=== PATIENT | female | born 1960 | race Hispanic/Latino ===

== ENCOUNTER 2018-11-06 19:52 | Inpatient (IN) | payer SELFPAY ==
[~2018-11-06] VITALS: Ht 157.5 cm; Wt 130.8 kg
[2018-11-06 20:13] LABS: BASOPHILS % (AUTO) 0.5 % (0.0-5.0); EOSINOPHILS % (AUTO) 0.4 % (0.0-8.0); HEMATOCRIT 42.7 % (36-48); LYMPHOCYTES % (AUTO) 17.8 % (21.0-51.0); MEAN CORPUSCULAR HEMOGLOBIN 31.1 pg (27.0-33.0); MEAN CORPUSCULAR HGB CONC 33.5 g/dL (32.0-36.0); MEAN CORPUSCULAR VOLUME 92.9 fL (79-99); MONOCYTES % (AUTO) 5.2 % (3.0-13.0); NEUTROPHILS % (AUTO) 76.1 % (40.0-77.0); PLATELET COUNT (AUTO) 226 K/uL (130-400); RED BLOOD CELL COUNT(AUTO) 4.59 MIL/uL (4.00-5.50); RED CELL DISTRIBUTION WIDTH 14.1 % (11.0-15.5); WHITE BLOOD COUNT (AUTO) 13.8 K/uL (4.8-10.8)
[2018-11-06] MEDS ORDERED: MORPHINE SULFATE 4 MG/1ML SYG ONE (20:30)
[2018-11-06 20:33] LABS: CREATININE 0.8 mg/dL (0.5-1.5); POTASSIUM 3.8 mmol/L (3.5-5.1)
[2018-11-06 20:39] LABS: CREATINE KINASE, TOTAL 150 U/L (21-232)
[2018-11-06 20:40] LABS: ALBUMIN 3.7 g/dL (3.5-5.0); BILIRUBIN,TOTAL 1.4 mg/dL (0.2-1.0); TOTAL PROTEIN, SERUM 7.9 g/dL (6.0-8.3)
[2018-11-06 21:45] LABS: LIPASE 31567 U/L (114-286)
[2018-11-06] MEDS ORDERED: ZOSYN 3.375GM+NS 50ML 50 ML IV ONE (22:54)
[2018-11-06 23:23] LABS: APPEARANCE,URINE Clear (CLEAR); BILIRUBIN,URINE Negative (NEGATIVE); COLOR,URINE Yellow (YELLOW); GLUCOSE, URINE (UA) Negative (NEGATIVE); KETONES,URINE 15 mg/dL (NEGATIVE); LEUKOCYTE ESTERASE ,URINE Large (NEGATIVE); NITRATE,URINE Negative (NEGATIVE); OCCULT BLOOD,URINE Small (NEGATIVE); PH,URINE 5.5 (5.0-8.0); PROTEIN,URINE Negative (NEGATIVE); UROBILINOGEN,URINE 0.2 mg/dL (0.2-1.0)
[2018-11-06 23:40] VITALS: BP 143/77
--- NOTE | 2018-11-06 23:50 | NUR ---
Admission Assessment Received pt from ED per wheelchair with no family around, routine admission assessment done, plan of care discuss, all laboratory & radiologic studies discuss with all concern questions addressed, NPO instructed, aware to start NS at 150cc/hr. Pt claimed abdominal pain started earlier today at 1500 & became severe reason of coming in to the hospital. Pt currently denies any discomfort stated was given some pain medication in ED.
[2018-11-06 23:53] LABS: BACTERIA,URINE Few /HPF (None Seen); MUCUS,URINE Moderate LPF (None Seen); SQUAMOUS EPITHELIAL CELL,UR Moderate /HPF (0-2)
[2018-11-06] MEDS ORDERED: SODIUM CHLORIDE 0.9% 1000ML 1,000 ML IV SCH (23:57)
[2018-11-07] MEDS ORDERED: ACETAMINOPHEN 325 MG TAB PO PRN
[2018-11-07] MEDS ORDERED: MORPHINE SULFATE 4 MG/1ML SYG IV PRN
[2018-11-07] MEDS ORDERED: ONDANSETRON HCL 4 MG/2 ML VIAL IV PRN
[2018-11-07] MEDS ORDERED: HYDRALAZINE HCL 20 MG/ML VIAL IV PRN
[2018-11-07] MEDS ORDERED: METRONIDAZOLE 500MG/100ML BAG 100 ML ONE (00:17)
[2018-11-07] MEDS ORDERED: SODIUM CHLORIDE 0.9% 1000ML 1,000 ML IV ONE (00:17)
[2018-11-07] MEDS ORDERED: LEVO50TA11 PO (00:29)
[2018-11-07] MEDS ORDERED: ENAL20TA PO (00:29)
[2018-11-07] MEDS ORDERED: FISH1CAP27 PO (00:29)
[2018-11-07] MEDS ORDERED: METF-444 PO (00:29)
[2018-11-07] MEDS ORDERED: MORPHINE SULFATE 4 MG/1ML SYG ONE (01:03)
[2018-11-07 03:59] VITALS: BP 125/75
[2018-11-07] MEDS: FAMOTIDINE/PF 20 MG/2 ML VIAL IV SCH ×2 (07:58→21:29)
[2018-11-07] MEDS: METRONIDAZOLE 500MG/100ML BAG 100 ML IV SCH ×3 (07:58→16:59)
[2018-11-07] MEDS: ENOXAPARIN SODIUM 30 MG/0.3 ML SQ SCH ×2 (07:59→21:29)
[2018-11-07] MEDS ORDERED: GLUCAGON 1MG KIT 1 MG ML IM PRN (08:00)
[2018-11-07] MEDS ORDERED: DEXTROSE 50%-WATER 50 ML DISP.SYRIN IV PRN (08:00)
[2018-11-07 08:17] LABS: BASOPHILS % (AUTO) 0.2 % (0.0-5.0); EOSINOPHILS % (AUTO) 0.4 % (0.0-8.0); HEMATOCRIT 38.4 % (36-48); LYMPHOCYTES % (AUTO) 18.1 % (21.0-51.0); MEAN CORPUSCULAR HEMOGLOBIN 32.2 pg (27.0-33.0); MEAN CORPUSCULAR HGB CONC 34.7 g/dL (32.0-36.0); MEAN CORPUSCULAR VOLUME 92.8 fL (79-99); MONOCYTES % (AUTO) 7.5 % (3.0-13.0); NEUTROPHILS % (AUTO) 73.8 % (40.0-77.0); PLATELET COUNT (AUTO) 187 K/uL (130-400); RED BLOOD CELL COUNT(AUTO) 4.14 MIL/uL (4.00-5.50); RED CELL DISTRIBUTION WIDTH 14.1 % (11.0-15.5); WHITE BLOOD COUNT (AUTO) 7.5 K/uL (4.8-10.8)
[2018-11-07 08:24] LABS: CREATININE 0.7 mg/dL (0.5-1.5); POTASSIUM 3.8 mmol/L (3.5-5.1)
[2018-11-07 08:39] VITALS: BP 123/74
[2018-11-07 11:56] VITALS: BP 142/81
[2018-11-07] MEDS: INSULIN HUMULIN R 100 UNIT/ML 3ML SQ SCH ×2 (12:00→18:00)
[2018-11-07] MEDS: FISH OIL 1000 MG/CAP PO SCH (12:01)
[2018-11-07] MEDS: ENALAPRIL MALEATE 10 MG TABLET PO SCH (12:01)
[2018-11-07] MEDS: LACTATED RINGERS 1000ML 1,000 ML IV SCH ×3 (12:02→21:29)
[2018-11-07] MEDS: ZOSYN 3.375GM+NS 50ML 50 ML IV SCH ×2 (12:02→16:59)
--- NOTE | 2018-11-07 14:20 | NUR ---
SURGICAL CONSULT VISITED WITH PATIENT. POC DISCUSSED. NEW ORDERS RECEIVED AND CARRIED OUT. PATIENT AWARE. NO QUESTIONS OR CONCERNS VOICED. NO COMPLAINTS OF PAIN VOICED AT THIS TIME. NPO. NO SIGNS OF DISTRESS NOTED. LR INFUSING AT 100ML/HR. NO NAUSEA OR VOMITING NOTED. UP AD ROSALIA. CALL LIGHT WITHIN REACH. WILL CONTINUE TO BE OBSERVED. Addendum: 11/07/18 at 3 by ELADIA LAM RN RN Amended: Links added.
[2018-11-07 16:43] VITALS: BP 166/76
--- NOTE | 2018-11-07 18:25 | NUR ---
D/C PLAN CM spoke to pt regarding d/c planning. Pt is ind. and lives alone. Pt f/u at [facility] for medical care. CM provided community resources packet. Plan to home. CM to f/u Addendum: 11/07/18 at 1827 by NEPTALI BANG CM Amended: Links added.
[2018-11-07 20:00] VITALS: BP 146/81
[2018-11-07 23:49] VITALS: BP 138/79
[2018-11-08] MEDS: METRONIDAZOLE 500MG/100ML BAG 100 ML IV SCH ×3 (00:23→16:15)
[2018-11-08] MEDS: ZOSYN 3.375GM+NS 50ML 50 ML IV SCH ×3 (01:37→17:38)
--- NOTE | 2018-11-08 02:59 | NUR ---
NPO Pt remains NPO,denies pain,no nausea or vomiting.
[2018-11-08 03:49] VITALS: BP 149/89
[2018-11-08 05:07] LABS: HEMATOCRIT 37.6 % (36-48); MEAN CORPUSCULAR HEMOGLOBIN 31.5 pg (27.0-33.0); MEAN CORPUSCULAR HGB CONC 33.6 g/dL (32.0-36.0); MEAN CORPUSCULAR VOLUME 93.7 fL (79-99); PLATELET COUNT (AUTO) 181 K/uL (130-400); RED BLOOD CELL COUNT(AUTO) 4.02 MIL/uL (4.00-5.50); RED CELL DISTRIBUTION WIDTH 14.3 % (11.0-15.5); WHITE BLOOD COUNT (AUTO) 5.8 K/uL (4.8-10.8)
[2018-11-08 05:22] LABS: CREATININE 0.7 mg/dL (0.5-1.5); POTASSIUM 3.3 mmol/L (3.5-5.1)
[2018-11-08] MEDS: INSULIN HUMULIN R 100 UNIT/ML 3ML SQ SCH ×5 (06:00→21:20)
[2018-11-08] MEDS: LEVOTHYROXINE 50 MCG TABLET PO SCH (06:37)
[2018-11-08 08:00] VITALS: BP 165/85
[2018-11-08] MEDS: ENALAPRIL MALEATE 10 MG TABLET PO SCH (09:23)
[2018-11-08] MEDS: FAMOTIDINE/PF 20 MG/2 ML VIAL IV SCH ×2 (09:23→21:13)
[2018-11-08] MEDS: ENOXAPARIN SODIUM 30 MG/0.3 ML SQ SCH ×2 (09:24→21:13)
[2018-11-08] MEDS: FISH OIL 1000 MG/CAP PO SCH (11:04)
[2018-11-08] MEDS: LACTATED RINGERS 1000ML 1,000 ML IV SCH ×2 (11:04→21:12)
[2018-11-08 12:00] VITALS: BP 143/74
[2018-11-08 16:00] VITALS: BP 145/71
[2018-11-08 20:00] VITALS: BP 162/86
[2018-11-09] VITALS: BP 162/75
[2018-11-09] MEDS: METRONIDAZOLE 500MG/100ML BAG 100 ML IV SCH ×3 (00:20→15:24)
[2018-11-09] MEDS: ZOSYN 3.375GM+NS 50ML 50 ML IV SCH ×3 (01:08→15:24)
[2018-11-09 04:00] VITALS: BP 125/78
[2018-11-09 05:11] LABS: HEMATOCRIT 37.9 % (36-48); MEAN CORPUSCULAR HEMOGLOBIN 32.3 pg (27.0-33.0); MEAN CORPUSCULAR HGB CONC 34.4 g/dL (32.0-36.0); NUCLEATED RED BLOOD CELLS 0.1 % (0.0-0.19); PLATELET COUNT (AUTO) 176 K/uL (130-400); RED BLOOD CELL COUNT(AUTO) 4.03 MIL/uL (4.00-5.50); RED CELL DISTRIBUTION WIDTH 14.2 % (11.0-15.5); WHITE BLOOD COUNT (AUTO) 5.7 K/uL (4.8-10.8)
[2018-11-09 05:25] LABS: CREATININE 0.8 mg/dL (0.5-1.5); POTASSIUM 3.7 mmol/L (3.5-5.1)
[2018-11-09] MEDS: INSULIN HUMULIN R 100 UNIT/ML 3ML SQ SCH ×3 (06:00→16:16)
[2018-11-09] MEDS: LEVOTHYROXINE 50 MCG TABLET PO SCH (06:23)
[2018-11-09] MEDS: LACTATED RINGERS 1000ML 1,000 ML IV SCH ×2 (06:25→15:25)
[2018-11-09 08:00] VITALS: BP 157/81
[2018-11-09] MEDS: FAMOTIDINE/PF 20 MG/2 ML VIAL IV SCH ×2 (09:12→21:17)
[2018-11-09] MEDS: ENALAPRIL MALEATE 10 MG TABLET PO SCH (09:12)
[2018-11-09] MEDS: ENOXAPARIN SODIUM 30 MG/0.3 ML SQ SCH ×2 (09:13→21:17)
[2018-11-09 12:00] VITALS: BP 140/83
[2018-11-09] MEDS: FISH OIL 1000 MG/CAP PO SCH (12:25)
[2018-11-09 16:00] VITALS: BP 150/67
[2018-11-09 20:00] VITALS: BP 156/84
[2018-11-10] VITALS (7 sets, daily range): BP systolic 133–162; BP diastolic 70–97
[2018-11-10] MEDS: METRONIDAZOLE 500MG/100ML BAG 100 ML IV SCH ×3 (00:21→15:22)
[2018-11-10] MEDS: ZOSYN 3.375GM+NS 50ML 50 ML IV SCH ×3 (00:21→18:13)
[2018-11-10] MEDS: LACTATED RINGERS 1000ML 1,000 ML IV SCH ×2 (04:19→15:22)
--- NOTE | 2018-11-10 04:46 | NUR ---
BP Pts bp 161/80.She states she does not want to take anything for her bp this time.Denies pain or discomfort.
[2018-11-10 05:42] LABS: HEMATOCRIT 37.6 % (36-48); MEAN CORPUSCULAR HEMOGLOBIN 31.6 pg (27.0-33.0); PLATELET COUNT (AUTO) 206 K/uL (130-400); RED BLOOD CELL COUNT(AUTO) 4.04 MIL/uL (4.00-5.50); RED CELL DISTRIBUTION WIDTH 14.1 % (11.0-15.5)
[2018-11-10] MEDS: INSULIN HUMULIN R 100 UNIT/ML 3ML SQ SCH ×4 (06:00→17:50)
[2018-11-10 06:14] LABS: ALBUMIN 2.8 g/dL (3.5-5.0); CREATININE 0.8 mg/dL (0.5-1.5); POTASSIUM 3.7 mmol/L (3.5-5.1); TOTAL PROTEIN, SERUM 6.5 g/dL (6.0-8.3)
[2018-11-10] MEDS: LEVOTHYROXINE 50 MCG TABLET PO SCH (06:37)
[2018-11-10] MEDS: FAMOTIDINE/PF 20 MG/2 ML VIAL IV SCH ×2 (11:08→20:55)
[2018-11-10] MEDS: FISH OIL 1000 MG/CAP PO SCH (11:09)
[2018-11-10] MEDS: ENOXAPARIN SODIUM 30 MG/0.3 ML SQ SCH ×2 (11:12→21:00)
[2018-11-10] MEDS: ENALAPRIL MALEATE 10 MG TABLET PO SCH (11:19)
[2018-11-11] VITALS (20 sets, daily range): BP systolic 136–179; BP diastolic 77–90
[2018-11-11] MEDS: METRONIDAZOLE 500MG/100ML BAG 100 ML IV SCH ×3 (00:26→16:56)
[2018-11-11] MEDS: ZOSYN 3.375GM+NS 50ML 50 ML IV SCH ×3 (01:49→16:57)
[2018-11-11] MEDS: LACTATED RINGERS 1000ML 1,000 ML IV SCH ×3 (01:51→20:12)
[2018-11-11 06:00] LABS: HEMATOCRIT 38.4 % (36-48); MEAN CORPUSCULAR HEMOGLOBIN 32.2 pg (27.0-33.0); MEAN CORPUSCULAR HGB CONC 34.7 g/dL (32.0-36.0); MEAN CORPUSCULAR VOLUME 92.8 fL (79-99); PLATELET COUNT (AUTO) 199 K/uL (130-400); RED BLOOD CELL COUNT(AUTO) 4.14 MIL/uL (4.00-5.50); RED CELL DISTRIBUTION WIDTH 14.3 % (11.0-15.5); WHITE BLOOD COUNT (AUTO) 5.7 K/uL (4.8-10.8)
[2018-11-11] MEDS: INSULIN HUMULIN R 100 UNIT/ML 3ML SQ SCH ×4 (06:00→17:03)
[2018-11-11 06:06] LABS: INR 0.98 (0.85-1.15); PROTHROMBIN TIME 10.3 SEC (9.6-11.6)
[2018-11-11 06:14] LABS: ALBUMIN 2.9 g/dL (3.5-5.0); BILIRUBIN,TOTAL 0.9 mg/dL (0.2-1.0); CREATININE 0.7 mg/dL (0.5-1.5); POTASSIUM 3.3 mmol/L (3.5-5.1); TOTAL PROTEIN, SERUM 6.7 g/dL (6.0-8.3)
[2018-11-11] MEDS: LEVOTHYROXINE 50 MCG TABLET PO SCH (06:34)
[2018-11-11] MEDS: ENOXAPARIN SODIUM 30 MG/0.3 ML SQ SCH ×2 (08:55→20:12)
[2018-11-11] MEDS: FAMOTIDINE/PF 20 MG/2 ML VIAL IV SCH ×2 (08:55→20:12)
[2018-11-11] MEDS: FISH OIL 1000 MG/CAP PO SCH (08:56)
[2018-11-11] MEDS: ENALAPRIL MALEATE 10 MG TABLET PO SCH (09:09)
[2018-11-11] MEDS ORDERED: LIDOCAINE PF 2% 5ML ABBOJECT ONE (12:11)
[2018-11-11] MEDS ORDERED: SUCCINYLCHOLINE 200MG/10ML SYR ONE (12:11)
[2018-11-11] MEDS ORDERED: DEXAMETHASONE SOD PHOSPHATE 10MG/ML 1ML VIAL ONE (12:12)
[2018-11-11] MEDS ORDERED: MIDAZOLAM HCL 1 MG/ML 2ML VIAL ONE (12:12)
[2018-11-11] MEDS ORDERED: NEOSTIGMINE 5MG/5ML SYR IV ONE (12:12)
[2018-11-11] MEDS ORDERED: PROPOFOL 10 MG/ML 20ML VIAL IV ONE (12:12)
[2018-11-11] MEDS ORDERED: ONDANSETRON HCL 4 MG/2 ML VIAL ONE (12:12)
[2018-11-11] MEDS ORDERED: GLYCOPYRROLATE 1 MG/5 ML SYRINGE ONE (12:12)
[2018-11-11] MEDS ORDERED: ROCURONIUM 10MG/1ML SYR 10 MG/ML ML ONE (12:13)
[2018-11-11] MEDS ORDERED: FENTANYL CITRATE PF 50 MCG/1 ML 2ML VIAL ONE ×3 (12:13→15:03)
[2018-11-11] MEDS ORDERED: SODIUM CHLORIDE 0.9% 1000ML 1,000 ML IV ONE (12:24)
[2018-11-11] MEDS ORDERED: BUPIVACAINE/PF 0.25% 30ML VIAL IJ ONE (13:13)
[2018-11-11] MEDS ORDERED: LIDOCAINE HCL/EPINEPHRINE 50 ML VIAL IJ ONE (13:13)
[2018-11-11] MEDS ORDERED: EPHEDRINE SULFATE 50 MG/ML AMPULE ONE (14:53)
[2018-11-11] MEDS ORDERED: MEPERIDINE-PF 25 MG/ML SYG ONE ×2 (15:32→15:45)
--- NOTE | 2018-11-11 15:58 | NUR ---
PT WITH VERY LOOSE FRONT TEETH, INTACT. Addendum: 11/11/18 at 1609 by RENEE GOMEZ RN RN Amended: Links added.
--- NOTE | 2018-11-11 16:45 | NUR ---
S/P lap. jenifer, no bleeding to surgical site. Denies any pain at this time.
--- NOTE | 2018-11-11 18:21 | NUR ---
Nutrition Intervention: Nutrition screen based on LOS x 5 days. Pt. admitted with Dx of Abd. pain, Acute Pancreatitis, Uncontrolled DM. Pt. S/P lap cholecystectomy(11/11/18). Pt. NPO. Family stated pt. just got back from procedure a while ago. Pt. not up for diet education at this time; complaining of pain in her belly button. Labs reviewed(Alb 2.9, Lipase 471). LBM: 11/11/18. SR-20, elastic. BMI: 52.7, morbid obesity. Recommendations: 1) When medically feasible, rec. advance diet as tolerated to 6 small meals 75gm CCD Soft diet. 2) Continue to monitor pt's nutritional status. 3) Consult RD as nutrition concerns arise. Addendum: 11/11/18 at [address] Amended: Links added.
[2018-11-11] MEDS ORDERED: OXYCODONE/ACETAMIN 5/325MG TAB PO PRN (19:00)
[2018-11-12] VITALS: BP 175/75
[2018-11-12] MEDS: METRONIDAZOLE 500MG/100ML BAG 100 ML IV SCH ×3 (00:13→16:37)
[2018-11-12] MEDS: ZOSYN 3.375GM+NS 50ML 50 ML IV SCH ×3 (00:13→16:37)
[2018-11-12] MEDS: MORPHINE SULFATE 2 MG/ML 1ML SYG IV PRN ×2 (00:14→22:02)
[2018-11-12] MEDS: INSULIN HUMULIN R 100 UNIT/ML 3ML SQ SCH ×4 (00:18→16:35)
[2018-11-12 03:55] VITALS: BP 134/71
[2018-11-12 04:24] LABS: HEMATOCRIT 39.7 % (36-48); MEAN CORPUSCULAR HEMOGLOBIN 31.1 pg (27.0-33.0); MEAN CORPUSCULAR HGB CONC 33.5 g/dL (32.0-36.0); PLATELET COUNT (AUTO) 238 K/uL (130-400); RED BLOOD CELL COUNT(AUTO) 4.27 MIL/uL (4.00-5.50); RED CELL DISTRIBUTION WIDTH 14.1 % (11.0-15.5); WHITE BLOOD COUNT (AUTO) 9.2 K/uL (4.8-10.8)
[2018-11-12 04:46] LABS: ALBUMIN 2.9 g/dL (3.5-5.0); BILIRUBIN,TOTAL 0.8 mg/dL (0.2-1.0); CREATININE 0.8 mg/dL (0.5-1.5); POTASSIUM 3.7 mmol/L (3.5-5.1); TOTAL PROTEIN, SERUM 6.9 g/dL (6.0-8.3)
[2018-11-12] MEDS: LEVOTHYROXINE 50 MCG TABLET PO SCH (06:29)
[2018-11-12 08:00] VITALS: BP 144/74
[2018-11-12] MEDS: ENALAPRIL MALEATE 10 MG TABLET PO SCH (09:07)
[2018-11-12] MEDS: FAMOTIDINE/PF 20 MG/2 ML VIAL IV SCH ×2 (09:08→19:51)
[2018-11-12] MEDS: ENOXAPARIN SODIUM 30 MG/0.3 ML SQ SCH ×2 (09:08→19:50)
[2018-11-12] MEDS: LACTATED RINGERS 1000ML 1,000 ML IV SCH (09:09)
[2018-11-12 12:00] VITALS: BP 116/64
[2018-11-12] MEDS: FISH OIL 1000 MG/CAP PO SCH (13:43)
[2018-11-12 16:00] VITALS: BP 141/75
[2018-11-12 19:02] VITALS: BP 139/73
[2018-11-13 00:04] VITALS: BP 143/84
[2018-11-13] MEDS: ZOSYN 3.375GM+NS 50ML 50 ML IV SCH ×2 (00:06→09:32)
[2018-11-13] MEDS: METRONIDAZOLE 500MG/100ML BAG 100 ML IV SCH ×2 (00:06→09:32)
[2018-11-13 04:01] VITALS: BP 170/88
[2018-11-13 05:07] LABS: HEMATOCRIT 35.7 % (36-48); MEAN CORPUSCULAR HEMOGLOBIN 32.5 pg (27.0-33.0); MEAN CORPUSCULAR HGB CONC 34.9 g/dL (32.0-36.0); MEAN CORPUSCULAR VOLUME 93.2 fL (79-99); NUCLEATED RED BLOOD CELLS 0.1 % (0.0-0.19); PLATELET COUNT (AUTO) 194 K/uL (130-400); RED BLOOD CELL COUNT(AUTO) 3.83 MIL/uL (4.00-5.50); RED CELL DISTRIBUTION WIDTH 14.1 % (11.0-15.5); WHITE BLOOD COUNT (AUTO) 7.4 K/uL (4.8-10.8)
[2018-11-13 05:40] LABS: ALBUMIN 2.7 g/dL (3.5-5.0); BILIRUBIN,TOTAL 0.8 mg/dL (0.2-1.0); CREATININE 0.8 mg/dL (0.5-1.5); POTASSIUM 3.2 mmol/L (3.5-5.1); TOTAL PROTEIN, SERUM 6.3 g/dL (6.0-8.3)
[2018-11-13] MEDS: INSULIN HUMULIN R 100 UNIT/ML 3ML SQ SCH ×3 (05:46→11:56)
[2018-11-13] MEDS: LEVOTHYROXINE 50 MCG TABLET PO SCH (05:52)
[2018-11-13 08:00] VITALS: BP 151/79
[2018-11-13] MEDS: FAMOTIDINE/PF 20 MG/2 ML VIAL IV SCH (09:32)
[2018-11-13] MEDS: ENALAPRIL MALEATE 10 MG TABLET PO SCH (09:33)
[2018-11-13] MEDS: ENOXAPARIN SODIUM 30 MG/0.3 ML SQ SCH (09:33)
[2018-11-13 11:46] VITALS: BP 139/76
[2018-11-13] MEDS: FISH OIL 1000 MG/CAP PO SCH (11:52)
[2018-11-13] MEDS ORDERED: CEPH500C2 PO (13:34)
== END 2018-11-13 14:37 | disposition home or self-care (01) | DRG 417 ==
LOC: EDH 19:52 → EDHIP 19:53 → 3AH 23:21
PROVIDERS: ADMIT Hospitalist; ATTEND Hospitalist
PROC: 0FT44ZZ Resection of Gallbladder, Percutaneous Endoscopic Approach (ICD-10-PCS; principal; 2018-11-11 13:45)
DX: K80.00 Calculus of gallbladder with acute cholecystitis without obstruction (principal); K85.10 Biliary acute pancreatitis without necrosis or infection; Z68.43 Body mass index [BMI] 50.0-59.9, adult; N39.0 Urinary tract infection, site not specified; C23 Malignant neoplasm of gallbladder; K82.8 Other specified diseases of gallbladder; I10 Essential (primary) hypertension; E66.01 Morbid (severe) obesity due to excess calories; E03.9 Hypothyroidism, unspecified; E11.65 Type 2 diabetes mellitus with hyperglycemia; B95.1 Streptococcus, group B, as the cause of diseases classified elsewhere; E78.5 Hyperlipidemia, unspecified; K76.0 Fatty (change of) liver, not elsewhere classified; Z90.49 Acquired absence of other specified parts of digestive tract
CPT/HCPCS: 36415; 71045; 76705; 80048; 80053; 81001; 82150; 82550; 82948; 83690; 84478; 84484; 85025; 85027; 85610; 87088; 93005; 97039; 99291; G0378; J0330; J0360; J1100; J1650; J1815; J2001; J2175; J2250; J2270; J2405; J2543; J2704; J2710; J3010; J3490; J7030; J7120

== ENCOUNTER 2020-06-24 20:17 | Inpatient (IN) | payer MEDICAID, OTHER ==
[~2020-06-24] VITALS: Ht 160 cm; Wt 122.1 kg
[~2020-06-24 20:17] MED LIST: CEPH500C2 PO; ENAL20TA18 PO; FISH1CAP27 PO; LEVO50TA11 PO; METF-444 PO
[2020-06-24 20:44] LABS: BASOPHILS % (AUTO) 0.3 % (0.0-5.0); EOSINOPHILS % (AUTO) 0.9 % (0.0-8.0); HEMATOCRIT 48.1 % (36-48); LYMPHOCYTES % (AUTO) 16.4 % (21.0-51.0); MEAN CORPUSCULAR HEMOGLOBIN 29.3 pg (27.0-33.0); MEAN CORPUSCULAR HGB CONC 32.8 g/dL (32.0-36.0); MEAN CORPUSCULAR VOLUME 89.1 fL (79-99); MONOCYTES % (AUTO) 6.9 % (3.0-13.0); NEUTROPHILS % (AUTO) 74.8 % (40.0-77.0); PLATELET COUNT (AUTO) 408 K/uL (130-400); RED CELL DISTRIBUTION WIDTH 13.8 % (11.0-15.5)
[2020-06-24] MEDS ORDERED: ONDANSETRON HCL 4 MG/2 ML VIAL ONE (20:54)
[2020-06-24] MEDS ORDERED: MORPHINE SULFATE 4 MG/1ML SYG ONE (20:55)
[2020-06-24 20:59] LABS: CREATININE 2.6 mg/dL (0.5-1.5)
[2020-06-24 21:03] LABS: INR 1.07 (0.85-1.15); PROTHROMBIN TIME 11.4 SEC (9.6-11.6)
[2020-06-24 21:04] LABS: ALBUMIN 2.9 g/dL (3.5-5.0); BILIRUBIN,TOTAL 0.6 mg/dL (0.2-1.0); PARTIAL THROMBOPLASTIN TIME 26.9 SEC (26.3-35.5); TOTAL PROTEIN, SERUM 7.7 g/dL (6.0-8.3)
[2020-06-24] MEDS: AZITHROMYCIN 500MG+NS 250ML 250 ML IV SCH (22:45)
[2020-06-24] MEDS: CEFTRIAXONE SODIUM 1 GM IVP SCH (22:45)
[2020-06-24] MEDS ORDERED: CEFTRIAXONE SODIUM 1 GM ONE (23:03)
[2020-06-24] MEDS ORDERED: AZITHROMYCIN 500MG+NS 250ML 250 ML IV ONE (23:23)
[2020-06-25 00:52] VITALS: BP 99/69
[2020-06-25 04:01] VITALS: BP 100/66
[2020-06-25] MEDS: HYDROMORPHONE HCL 0.5 MG/0.5 ML ML IVP PRN ×3 (05:31→22:26)
[2020-06-25 05:55] LABS: BASOPHILS % (AUTO) 0.5 % (0.0-5.0); EOSINOPHILS % (AUTO) 0.9 % (0.0-8.0); HEMATOCRIT 43.1 % (36-48); LYMPHOCYTES % (AUTO) 14.6 % (21.0-51.0); MEAN CORPUSCULAR HEMOGLOBIN 29.5 pg (27.0-33.0); MEAN CORPUSCULAR HGB CONC 33.2 g/dL (32.0-36.0); MONOCYTES % (AUTO) 7.7 % (3.0-13.0); NEUTROPHILS % (AUTO) 75.6 % (40.0-77.0); PLATELET COUNT (AUTO) 360 K/uL (130-400); RED BLOOD CELL COUNT(AUTO) 4.84 MIL/uL (4.00-5.50); RED CELL DISTRIBUTION WIDTH 13.6 % (11.0-15.5); WHITE BLOOD COUNT (AUTO) 11.6 K/uL (4.8-10.8)
[2020-06-25 06:13] LABS: HEMOGLOBIN A1C 6.9 % (4.0-6.0)
[2020-06-25 06:26] LABS: ALANINE AMINOTRANSFERASE 12 U/L (12-78); ALBUMIN 2.5 g/dL (3.5-5.0); ASPARTATE AMINOTRANSFERASE 19 U/L (10-37); BILIRUBIN,TOTAL 0.6 mg/dL (0.2-1.0); CARBON DIOXIDE 26 mmol/L (21-32); CHLORIDE 101 mmol/L (101-111); CREATINE KINASE, TOTAL 19 U/L (21-232); CREATININE 1.6 mg/dL (0.5-1.5); GLOMERULAR FILTR. RATE CALC 35 mL/min (>60); GLUCOSE,RANDOM 151 mg/dL (70-105); MYOGLOBIN 46 ng/mL (10-92); POTASSIUM 4.8 mmol/L (3.5-5.1); SODIUM SERUM 136 mmol/L (136-145); TOTAL PROTEIN, SERUM 6.8 g/dL (6.0-8.3); TROPONIN I < 0.04 ng/mL (0.00-0.06); UREA NITROGEN, BLOOD 33 mg/dL (7-18)
[2020-06-25 07:56] VITALS: BP 106/73
[2020-06-25] MEDS ORDERED: FAMOTIDINE/PF 20 MG/2 ML VIAL IV SCH (09:00)
[2020-06-25 09:02] LABS: APPEARANCE,URINE TURBID (CLEAR); BILIRUBIN,URINE SMALL (NEGATIVE); GLUCOSE, URINE (UA) NEGATIVE (NEGATIVE); KETONES,URINE NEGATIVE (NEGATIVE); LEUKOCYTE ESTERASE ,URINE SMALL (NEGATIVE); NITRATE,URINE NEGATIVE (NEGATIVE); OCCULT BLOOD,URINE LARGE (NEGATIVE); PROTEIN,URINE 30 mg/dL (NEGATIVE); UROBILINOGEN,URINE 0.2 mg/dL (0.2-1.0)
[2020-06-25 09:21] LABS: COLOR,URINE Amber (YELLOW)
[2020-06-25 09:34] LABS: BACTERIA,URINE Many /HPF (None Seen); MUCUS,URINE Few LPF (None Seen); RBC,URINE 0-1 /HPF (0-1); SQUAMOUS EPITHELIAL CELL,UR Many /HPF (0-2); WBC,URINE 26-50 /HPF (0-1)
[2020-06-25] MEDS: SODIUM CHLORIDE 0.9% 1000ML 1,000 ML IV SCH (10:15)
[2020-06-25] MEDS ORDERED: ALBUMIN (HUMAN) 25% 100 ML IV SCH (10:30)
[2020-06-25 11:41] VITALS: BP 98/71
[2020-06-25] MEDS: CEFTRIAXONE SODIUM 1 GM IVP SCH ×2 (15:43→19:37)
[2020-06-25 19:02] VITALS: BP 104/71
[2020-06-25 19:25] LABS: CREATININE,URINE RANDOM 264 mg/dL (30-135); SODIUM,URINE RANDOM < 15 mmol/l (40-220)
[2020-06-25] MEDS: AZITHROMYCIN 500MG+NS 250ML 250 ML IV SCH (19:37)
[2020-06-25 20:00] VITALS: BP 109/73
[2020-06-26] VITALS (7 sets, daily range): BP systolic 94–130; BP diastolic 40–74
[2020-06-26] MEDS: SODIUM CHLORIDE 0.9% 1000ML 1,000 ML IV SCH (05:15)
[2020-06-26 05:26] LABS: BASOPHILS % (AUTO) 0.5 % (0.0-5.0); EOSINOPHILS % (AUTO) 0.8 % (0.0-8.0); HEMATOCRIT 44.9 % (36-48); LYMPHOCYTES % (AUTO) 11.4 % (21.0-51.0); MEAN CORPUSCULAR HEMOGLOBIN 29.6 pg (27.0-33.0); MEAN CORPUSCULAR HGB CONC 32.7 g/dL (32.0-36.0); MEAN CORPUSCULAR VOLUME 90.3 fL (79-99); MONOCYTES % (AUTO) 7.7 % (3.0-13.0); NEUTROPHILS % (AUTO) 78.7 % (40.0-77.0); PLATELET COUNT (AUTO) 365 K/uL (130-400); RED BLOOD CELL COUNT(AUTO) 4.97 MIL/uL (4.00-5.50); RED CELL DISTRIBUTION WIDTH 13.9 % (11.0-15.5); WHITE BLOOD COUNT (AUTO) 12.2 K/uL (4.8-10.8)
[2020-06-26 05:47] LABS: INR 1.08 (0.85-1.15); PROTHROMBIN TIME 11.5 SEC (9.6-11.6)
[2020-06-26 06:01] LABS: CREATININE 1.9 mg/dL (0.5-1.5); MAGNESIUM 2.3 mg/dL (1.80-2.40); POTASSIUM 5.6 mmol/L (3.5-5.1)
[2020-06-26] MEDS: HYDROMORPHONE HCL 0.5 MG/0.5 ML ML IVP PRN ×2 (06:38→15:41)
[2020-06-26] MEDS ORDERED: SODIUM POLYSTYRENE SULFONATE 15 GM/60 ML ML PO SCH (09:15)
[2020-06-26] MEDS ORDERED: LEVOFLOXACIN 500 MG TABLET PO SCH (09:18)
[2020-06-26] MEDS: Vitamin B Complex/Vit C/Folic Acid PO SCH (10:20)
[2020-06-27 04:00] VITALS: BP 97/65
[2020-06-27 06:05] LABS: BASOPHILS % (AUTO) 0.3 % (0.0-5.0); EOSINOPHILS % (AUTO) 0.7 % (0.0-8.0); HEMATOCRIT 42.7 % (36-48); LYMPHOCYTES % (AUTO) 10.2 % (21.0-51.0); MEAN CORPUSCULAR HEMOGLOBIN 29.4 pg (27.0-33.0); MEAN CORPUSCULAR HGB CONC 32.6 g/dL (32.0-36.0); MEAN CORPUSCULAR VOLUME 90.3 fL (79-99); MONOCYTES % (AUTO) 8.8 % (3.0-13.0); NEUTROPHILS % (AUTO) 79.1 % (40.0-77.0); PLATELET COUNT (AUTO) 330 K/uL (130-400); RED BLOOD CELL COUNT(AUTO) 4.73 MIL/uL (4.00-5.50); RED CELL DISTRIBUTION WIDTH 13.9 % (11.0-15.5); WHITE BLOOD COUNT (AUTO) 11.2 K/uL (4.8-10.8)
[2020-06-27] MEDS: HYDROMORPHONE HCL 0.5 MG/0.5 ML ML IVP PRN (06:26)
[2020-06-27 06:29] LABS: CREATININE 1.9 mg/dL (0.5-1.5); MAGNESIUM 2.5 mg/dL (1.80-2.40); POTASSIUM 4.1 mmol/L (3.5-5.1); URIC ACID 12.2 mg/dL (2.6-7.2)
[2020-06-27] MEDS ORDERED: LEVOFLOXACIN 500 MG TABLET PO SCH (09:00)
[2020-06-27] MEDS ORDERED: ENOXAPARIN SODIUM 30 MG/0.3 ML SQ SCH (09:00)
[2020-06-27 09:21] VITALS: BP 90/62
[2020-06-27] MEDS: Vitamin B Complex/Vit C/Folic Acid PO SCH (09:32)
[2020-06-27] MEDS: MORPHINE SULFATE 15 MG TABLET.SA PO SCH ×2 (09:32→22:25)
[2020-06-27] MEDS: POLYETHYLENE GLYCOL 3350 17 GM POWD.PACK PO SCH (09:33)
[2020-06-27 12:37] VITALS: BP 103/69
[2020-06-27] MEDS: ALLOPURINOL 100 MG TABLET PO SCH (16:32)
[2020-06-27] MEDS: ZYVOX 600 MG TAB PO SCH (16:32)
[2020-06-27] MEDS: SODIUM CHLORIDE 0.9% 1000ML 1,000 ML IV SCH (16:33)
[2020-06-27 18:01] VITALS: BP 121/72
[2020-06-27 19:40] VITALS: BP 109/73
[2020-06-28] VITALS (9 sets, daily range): BP systolic 97–119; BP diastolic 62–81
[2020-06-28] MEDS: ZYVOX 600 MG TAB PO SCH ×3 (00:35→23:45)
[2020-06-28] MEDS: SODIUM CHLORIDE 0.9% 1000ML 1,000 ML IV SCH (04:17)
[2020-06-28 04:47] LABS: HEMATOCRIT 39.6 % (36-48); MEAN CORPUSCULAR HEMOGLOBIN 29.5 pg (27.0-33.0); MEAN CORPUSCULAR HGB CONC 32.6 g/dL (32.0-36.0); MEAN CORPUSCULAR VOLUME 90.6 fL (79-99); RED BLOOD CELL COUNT(AUTO) 4.37 MIL/uL (4.00-5.50); RED CELL DISTRIBUTION WIDTH 13.9 % (11.0-15.5)
[2020-06-28 04:55] LABS: CREATININE 1.9 mg/dL (0.5-1.5); POTASSIUM 3.9 mmol/L (3.5-5.1)
[2020-06-28] MEDS: MORPHINE SULFATE 15 MG TABLET.SA PO SCH ×2 (07:45→21:05)
[2020-06-28] MEDS: Vitamin B Complex/Vit C/Folic Acid PO SCH (10:10)
[2020-06-28] MEDS: ALLOPURINOL 100 MG TABLET PO SCH (10:10)
[2020-06-28] MEDS: POLYETHYLENE GLYCOL 3350 17 GM POWD.PACK PO SCH (10:10)
[2020-06-29 03:53] VITALS: BP 96/72
[2020-06-29 05:56] LABS: BASOPHILS % (AUTO) 0.4 % (0.0-5.0); EOSINOPHILS % (AUTO) 1.3 % (0.0-8.0); HEMATOCRIT 39.5 % (36-48); LYMPHOCYTES % (AUTO) 12.5 % (21.0-51.0); MEAN CORPUSCULAR HEMOGLOBIN 29.3 pg (27.0-33.0); MEAN CORPUSCULAR HGB CONC 32.9 g/dL (32.0-36.0); MEAN CORPUSCULAR VOLUME 89.2 fL (79-99); MONOCYTES % (AUTO) 9.8 % (3.0-13.0); NEUTROPHILS % (AUTO) 75.2 % (40.0-77.0); PLATELET COUNT (AUTO) 301 K/uL (130-400); RED BLOOD CELL COUNT(AUTO) 4.43 MIL/uL (4.00-5.50); WHITE BLOOD COUNT (AUTO) 9.8 K/uL (4.8-10.8)
[2020-06-29 06:10] LABS: CREATININE 1.9 mg/dL (0.5-1.5); MAGNESIUM 2.4 mg/dL (1.80-2.40); POTASSIUM 4.4 mmol/L (3.5-5.1)
[2020-06-29] MEDS: INSULIN HUMULIN R 100 UNIT/ML 3ML SQ SCH ×4 (06:32→21:00)
[2020-06-29 08:00] VITALS: BP 95/64
[2020-06-29] MEDS: POLYETHYLENE GLYCOL 3350 17 GM POWD.PACK PO SCH (09:23)
[2020-06-29] MEDS: MIDODRINE HCL 5 MG TABLET PO SCH ×2 (09:24→21:12)
[2020-06-29] MEDS: ALLOPURINOL 100 MG TABLET PO SCH (09:24)
[2020-06-29] MEDS: Vitamin B Complex/Vit C/Folic Acid PO SCH (09:24)
[2020-06-29] MEDS: MORPHINE SULFATE 15 MG TABLET.SA PO SCH ×2 (09:25→21:12)
[2020-06-29 12:00] VITALS: BP 96/63
[2020-06-29] MEDS: ZYVOX 600 MG TAB PO SCH (13:00)
[2020-06-29 15:45] VITALS: BP 95/64
[2020-06-29 20:24] VITALS: BP 101/68
[2020-06-29 23:56] VITALS: BP 108/74
[2020-06-30] MEDS: ZYVOX 600 MG TAB PO SCH ×2 (00:07→12:52)
[2020-06-30 03:54] VITALS: BP 103/67
[2020-06-30 04:08] LABS: MEAN CORPUSCULAR HEMOGLOBIN 29.7 pg (27.0-33.0); MEAN CORPUSCULAR HGB CONC 33.1 g/dL (32.0-36.0); MEAN CORPUSCULAR VOLUME 89.9 fL (79-99); PLATELET COUNT (AUTO) 306 K/uL (130-400); RED BLOOD CELL COUNT(AUTO) 4.34 MIL/uL (4.00-5.50); RED CELL DISTRIBUTION WIDTH 13.8 % (11.0-15.5); WHITE BLOOD COUNT (AUTO) 10.5 K/uL (4.8-10.8)
[2020-06-30 04:18] LABS: CREATININE 1.9 mg/dL (0.5-1.5); POTASSIUM 4.3 mmol/L (3.5-5.1)
[2020-06-30 04:33] LABS: EOSINOPHILS % (MANUAL) 2 % (1-6); LYMPHOCYTES % (MANUAL) 26 % (22-44); MONOCYTES % (MANUAL) 2 % (2-9); SEGMENTED NEUTROPHILS % 70 % (40-70)
[2020-06-30 04:34] LABS: MAN.DIFF COMMENT-IMPRESSION MANUAL DIFFERENTIAL
[2020-06-30] MEDS: INSULIN HUMULIN R 100 UNIT/ML 3ML SQ SCH ×4 (05:42→21:28)
[2020-06-30 08:42] VITALS: BP 106/69
[2020-06-30] MEDS: ALLOPURINOL 100 MG TABLET PO SCH (09:13)
[2020-06-30] MEDS: Vitamin B Complex/Vit C/Folic Acid PO SCH (09:13)
[2020-06-30] MEDS: MIDODRINE HCL 5 MG TABLET PO SCH ×2 (09:13→21:21)
[2020-06-30] MEDS: POLYETHYLENE GLYCOL 3350 17 GM POWD.PACK PO SCH (09:14)
[2020-06-30] MEDS: MORPHINE SULFATE 15 MG TABLET.SA PO SCH ×2 (09:23→21:00)
[2020-06-30 11:47] VITALS: BP 119/74
[2020-06-30 17:06] VITALS: BP 102/73
[2020-06-30 20:00] VITALS: BP 99/68
[2020-07-01] MEDS: ZYVOX 600 MG TAB PO SCH ×2 (00:40→12:07)
[2020-07-01 01:07] VITALS: BP 106/77
[2020-07-01 05:16] LABS: BASOPHILS % (AUTO) 0.5 % (0.0-5.0); EOSINOPHILS % (AUTO) 1.6 % (0.0-8.0); HEMATOCRIT 42.6 % (36-48); LYMPHOCYTES % (AUTO) 13.5 % (21.0-51.0); MEAN CORPUSCULAR HEMOGLOBIN 29.5 pg (27.0-33.0); MEAN CORPUSCULAR HGB CONC 32.9 g/dL (32.0-36.0); MEAN CORPUSCULAR VOLUME 89.7 fL (79-99); MONOCYTES % (AUTO) 6.9 % (3.0-13.0); NEUTROPHILS % (AUTO) 76.7 % (40.0-77.0); PLATELET COUNT (AUTO) 328 K/uL (130-400); RED BLOOD CELL COUNT(AUTO) 4.75 MIL/uL (4.00-5.50); RED CELL DISTRIBUTION WIDTH 14.1 % (11.0-15.5); WHITE BLOOD COUNT (AUTO) 11.9 K/uL (4.8-10.8)
[2020-07-01 05:32] LABS: POTASSIUM 4.3 mmol/L (3.5-5.1)
[2020-07-01 06:11] VITALS: BP 99/72
[2020-07-01] MEDS: INSULIN HUMULIN R 100 UNIT/ML 3ML SQ SCH ×3 (06:16→20:39)
[2020-07-01] MEDS: Vitamin B Complex/Vit C/Folic Acid PO SCH (08:14)
[2020-07-01] MEDS: ALLOPURINOL 100 MG TABLET PO SCH (08:14)
[2020-07-01] MEDS: MORPHINE SULFATE 15 MG TABLET.SA PO SCH ×2 (08:14→21:00)
[2020-07-01] MEDS: MIDODRINE HCL 5 MG TABLET PO SCH ×2 (08:14→22:38)
[2020-07-01] MEDS: POLYETHYLENE GLYCOL 3350 17 GM POWD.PACK PO SCH (08:18)
[2020-07-01 08:26] VITALS: BP 136/70
[2020-07-01] MEDS: ONDANSETRON HCL 4 MG/2 ML VIAL IV PRN (10:31)
[2020-07-01 11:51] VITALS: BP 102/74
[2020-07-01 16:02] VITALS: BP 96/65
[2020-07-01 20:21] VITALS: BP 96/56
[2020-07-02 00:24] VITALS: BP 107/76
[2020-07-02] MEDS: MORPHINE SULFATE 15 MG TABLET.SA PO SCH ×2 (00:41→08:04)
[2020-07-02] MEDS: ZYVOX 600 MG TAB PO SCH ×3 (00:42→23:07)
[2020-07-02 04:00] VITALS: BP 111/78
[2020-07-02 05:15] LABS: HEMATOCRIT 40.2 % (36-48); MEAN CORPUSCULAR HEMOGLOBIN 29.4 pg (27.0-33.0); MEAN CORPUSCULAR HGB CONC 32.6 g/dL (32.0-36.0); MEAN CORPUSCULAR VOLUME 90.1 fL (79-99); RED BLOOD CELL COUNT(AUTO) 4.46 MIL/uL (4.00-5.50); RED CELL DISTRIBUTION WIDTH 14.2 % (11.0-15.5); WHITE BLOOD COUNT (AUTO) 10.2 K/uL (4.8-10.8)
[2020-07-02 05:25] LABS: CREATININE 2.3 mg/dL (0.5-1.5); POTASSIUM 5.4 mmol/L (3.5-5.1)
[2020-07-02] MEDS: INSULIN HUMULIN R 100 UNIT/ML 3ML SQ SCH ×4 (05:43→20:08)
[2020-07-02] MEDS: LEVOTHYROXINE 50 MCG TABLET PO SCH (07:00)
[2020-07-02 07:30] VITALS: BP 123/83
[2020-07-02] MEDS ORDERED: SODIUM POLYSTYRENE SULFONATE 15 GM/60 ML ML PO SCH (08:15)
[2020-07-02] MEDS: Vitamin B Complex/Vit C/Folic Acid PO SCH (08:27)
[2020-07-02] MEDS: MIDODRINE HCL 5 MG TABLET PO SCH ×2 (08:27→20:07)
[2020-07-02] MEDS: ONDANSETRON HCL 4 MG/2 ML VIAL IV PRN (08:27)
[2020-07-02] MEDS: POLYETHYLENE GLYCOL 3350 17 GM POWD.PACK PO SCH ×2 (08:28→08:32)
[2020-07-02] MEDS: ALLOPURINOL 100 MG TABLET PO SCH (08:28)
[2020-07-02 11:00] VITALS: BP 104/70
[2020-07-02 16:00] VITALS: BP 93/52
[2020-07-02 20:00] VITALS: BP 105/70
[2020-07-02] MEDS ORDERED: TRAZODONE HCL 50 MG TAB ONE (20:02)
[2020-07-02] MEDS: TRAZODONE HCL 50 MG TAB PO SCH (20:08)
[2020-07-03] VITALS (7 sets, daily range): BP systolic 92–107; BP diastolic 59–70
[2020-07-03 04:08] LABS: HEMATOCRIT 37.8 % (36-48); MEAN CORPUSCULAR HGB CONC 33.6 g/dL (32.0-36.0); MEAN CORPUSCULAR VOLUME 89.2 fL (79-99); PLATELET COUNT (AUTO) 281 K/uL (130-400); RED BLOOD CELL COUNT(AUTO) 4.24 MIL/uL (4.00-5.50); RED CELL DISTRIBUTION WIDTH 14.1 % (11.0-15.5)
[2020-07-03 04:26] LABS: ALBUMIN 2.1 g/dL (3.5-5.0); BILIRUBIN,TOTAL 0.7 mg/dL (0.2-1.0); CREATININE 2.4 mg/dL (0.5-1.5); POTASSIUM 4.7 mmol/L (3.5-5.1); TOTAL PROTEIN, SERUM 5.9 g/dL (6.0-8.3)
[2020-07-03 04:36] LABS: BASOPHILS % (MANUAL) 1 % (0-2); EOSINOPHILS % (MANUAL) 8 % (1-6); LYMPHOCYTES % (MANUAL) 19 % (22-44); MAN.DIFF COMMENT-IMPRESSION MANUAL DIFFERENTIAL; MONOCYTES % (MANUAL) 5 % (2-9); PLATELET MORPHOLOGY COMMENT ADEQUATE; SEGMENTED NEUTROPHILS % 67 % (40-70)
[2020-07-03] MEDS: LEVOTHYROXINE 50 MCG TABLET PO SCH (05:19)
[2020-07-03] MEDS: INSULIN HUMULIN R 100 UNIT/ML 3ML SQ SCH ×4 (05:32→20:14)
[2020-07-03] MEDS: POLYETHYLENE GLYCOL 3350 17 GM POWD.PACK PO SCH (08:53)
[2020-07-03] MEDS: ALLOPURINOL 100 MG TABLET PO SCH (08:54)
[2020-07-03] MEDS: Vitamin B Complex/Vit C/Folic Acid PO SCH (08:54)
[2020-07-03] MEDS: MIDODRINE HCL 5 MG TABLET PO SCH ×2 (08:54→19:54)
[2020-07-03] MEDS: PAROXETINE HCL 20 MG TABLET PO SCH (08:54)
[2020-07-03] MEDS: ONDANSETRON HCL 4 MG/2 ML VIAL IV PRN ×2 (12:50→23:22)
[2020-07-03] MEDS: ZYVOX 600 MG TAB PO SCH ×2 (12:50→23:17)
[2020-07-03] MEDS ORDERED: PROMETHAZINE HCL 25 MG TABLET PO PRN (14:30)
[2020-07-03] MEDS: TRAZODONE HCL 50 MG TAB PO SCH (19:53)
[2020-07-03] MEDS: ALPRAZOLAM 0.5 MG TABLET PO PRN (19:54)
[2020-07-04 03:55] LABS: BASOPHILS % (AUTO) 0.3 % (0.0-5.0); EOSINOPHILS % (AUTO) 1.8 % (0.0-8.0); HEMATOCRIT 38.2 % (36-48); LYMPHOCYTES % (AUTO) 14.1 % (21.0-51.0); MEAN CORPUSCULAR HEMOGLOBIN 29.5 pg (27.0-33.0); MEAN CORPUSCULAR HGB CONC 33.2 g/dL (32.0-36.0); MEAN CORPUSCULAR VOLUME 88.6 fL (79-99); MONOCYTES % (AUTO) 7.3 % (3.0-13.0); NEUTROPHILS % (AUTO) 76.1 % (40.0-77.0); PLATELET COUNT (AUTO) 297 K/uL (130-400); RED BLOOD CELL COUNT(AUTO) 4.31 MIL/uL (4.00-5.50)
[2020-07-04 04:04] LABS: CREATININE 2.7 mg/dL (0.5-1.5); POTASSIUM 4.8 mmol/L (3.5-5.1)
[2020-07-04 04:24] VITALS: BP 103/65
[2020-07-04] MEDS: INSULIN HUMULIN R 100 UNIT/ML 3ML SQ SCH ×4 (04:46→21:49)
[2020-07-04] MEDS: LEVOTHYROXINE 50 MCG TABLET PO SCH ×2 (06:18→08:27)
[2020-07-04] MEDS: ONDANSETRON HCL 4 MG/2 ML VIAL IV PRN (06:21)
[2020-07-04 08:15] VITALS: BP 98/63
[2020-07-04] MEDS: Vitamin B Complex/Vit C/Folic Acid PO SCH (08:27)
[2020-07-04] MEDS: MIDODRINE HCL 5 MG TABLET PO SCH ×3 (08:27→21:42)
[2020-07-04] MEDS: PAROXETINE HCL 20 MG TABLET PO SCH (08:27)
[2020-07-04] MEDS: ALLOPURINOL 100 MG TABLET PO SCH (08:27)
[2020-07-04] MEDS: POLYETHYLENE GLYCOL 3350 17 GM POWD.PACK PO SCH (08:27)
[2020-07-04 11:41] VITALS: BP 107/73
[2020-07-04 12:14] LABS: INR 1.02 (0.85-1.15); PROTHROMBIN TIME 10.9 SEC (9.6-11.6)
[2020-07-04] MEDS: ZYVOX 600 MG TAB PO SCH (15:48)
[2020-07-04] MEDS: METOCLOPRAMIDE 5 MG TABLET PO SCH ×3 (15:50→21:42)
[2020-07-04 16:31] VITALS: BP 103/66
[2020-07-04 19:35] VITALS: BP 103/64
[2020-07-04] MEDS: TRAZODONE HCL 50 MG TAB PO SCH (21:42)
[2020-07-04] MEDS ORDERED: HYDROMORPHONE HCL 0.5 MG/0.5 ML ML IVP ONE (22:30)
[2020-07-04 23:17] VITALS: BP 103/73
[2020-07-05] VITALS (12 sets, daily range): BP systolic 90–128; BP diastolic 55–76
[2020-07-05] MEDS: ZYVOX 600 MG TAB PO SCH ×2 (00:29→14:04)
[2020-07-05 05:31] LABS: BASOPHILS % (AUTO) 0.6 % (0.0-5.0); EOSINOPHILS % (AUTO) 2.3 % (0.0-8.0); HEMATOCRIT 39.1 % (36-48); LYMPHOCYTES % (AUTO) 13.4 % (21.0-51.0); MEAN CORPUSCULAR HEMOGLOBIN 30.1 pg (27.0-33.0); MEAN CORPUSCULAR HGB CONC 33.8 g/dL (32.0-36.0); MEAN CORPUSCULAR VOLUME 89.1 fL (79-99); MONOCYTES % (AUTO) 8.1 % (3.0-13.0); NEUTROPHILS % (AUTO) 75.3 % (40.0-77.0); PLATELET COUNT (AUTO) 295 K/uL (130-400); RED BLOOD CELL COUNT(AUTO) 4.39 MIL/uL (4.00-5.50); RED CELL DISTRIBUTION WIDTH 14.1 % (11.0-15.5); WHITE BLOOD COUNT (AUTO) 9.1 K/uL (4.8-10.8)
[2020-07-05 05:44] LABS: CREATININE 2.9 mg/dL (0.5-1.5); POTASSIUM 5.2 mmol/L (3.5-5.1)
[2020-07-05] MEDS: INSULIN HUMULIN R 100 UNIT/ML 3ML SQ SCH ×4 (07:30→20:31)
[2020-07-05] MEDS: METOCLOPRAMIDE 5 MG TABLET PO SCH ×4 (07:30→22:08)
[2020-07-05] MEDS ORDERED: HYDROMORPHONE HCL 0.5 MG/0.5 ML ML ONE (07:38)
[2020-07-05] MEDS ORDERED: ALBUMIN (HUMAN) 25% 100 ML IV SCH (07:45)
[2020-07-05] MEDS: POLYETHYLENE GLYCOL 3350 17 GM POWD.PACK PO SCH (09:00)
[2020-07-05] MEDS: MIDODRINE HCL 5 MG TABLET PO SCH ×3 (09:00→22:08)
[2020-07-05] MEDS: ALLOPURINOL 100 MG TABLET PO SCH (09:00)
[2020-07-05] MEDS: PAROXETINE HCL 20 MG TABLET PO SCH (09:00)
[2020-07-05] MEDS: Vitamin B Complex/Vit C/Folic Acid PO SCH (09:00)
[2020-07-05 14:07] LABS: APPEARANCE BODY FLUID CLEAR (CLEAR); BODY FLUID RBC 364 /cu. mm.; BODY FLUID WBC 169 /cu. mm.; COLOR,BODY FLUID YELLOW (LT YELLOW); SPECIMENTYPE,BODY FLUID ASCITES; TOTAL VOLUME,BODY FLUID 6700 mL
[2020-07-05 14:16] LABS: BF LYMPHOCYTE 10 %; BF MESOTHELIAL 22 %; BF MONOCYTE 3 %
[2020-07-05] MEDS: TRAZODONE HCL 50 MG TAB PO SCH (21:00)
[2020-07-05] MEDS: ALPRAZOLAM 0.5 MG TABLET PO PRN (22:11)
[2020-07-06] MEDS: ZYVOX 600 MG TAB PO SCH ×2 (01:23→13:09)
[2020-07-06 04:40] VITALS: BP 108/68
[2020-07-06 06:28] LABS: BASOPHILS % (AUTO) 0.5 % (0.0-5.0); EOSINOPHILS % (AUTO) 2.4 % (0.0-8.0); HEMATOCRIT 39.7 % (36-48); LYMPHOCYTES % (AUTO) 17.5 % (21.0-51.0); MEAN CORPUSCULAR HEMOGLOBIN 29.6 pg (27.0-33.0); MEAN CORPUSCULAR VOLUME 89.6 fL (79-99); MONOCYTES % (AUTO) 6.4 % (3.0-13.0); NEUTROPHILS % (AUTO) 72.9 % (40.0-77.0); PLATELET COUNT (AUTO) 255 K/uL (130-400); RED BLOOD CELL COUNT(AUTO) 4.43 MIL/uL (4.00-5.50); RED CELL DISTRIBUTION WIDTH 14.1 % (11.0-15.5); WHITE BLOOD COUNT (AUTO) 9.2 K/uL (4.8-10.8)
[2020-07-06] MEDS: INSULIN HUMULIN R 100 UNIT/ML 3ML SQ SCH ×2 (06:30→13:14)
[2020-07-06] MEDS: METOCLOPRAMIDE 5 MG TABLET PO SCH ×2 (06:32→13:09)
[2020-07-06] MEDS: LEVOTHYROXINE 50 MCG TABLET PO SCH (06:32)
[2020-07-06 06:36] LABS: CREATININE 2.7 mg/dL (0.5-1.5); POTASSIUM 4.7 mmol/L (3.5-5.1)
[2020-07-06 08:00] VITALS: BP 98/61
[2020-07-06] MEDS ORDERED: SODIUM CHLORIDE 0.9% 1000ML 1,000 ML IV SCH (08:00)
[2020-07-06] MEDS ORDERED: MORPHINE SULFATE 2 MG/ML 1ML SYG IVP SCH (09:00)
[2020-07-06] MEDS: PAROXETINE HCL 20 MG TABLET PO SCH ×2 (09:00→09:26)
[2020-07-06] MEDS: POLYETHYLENE GLYCOL 3350 17 GM POWD.PACK PO SCH ×2 (09:00→09:26)
[2020-07-06] MEDS ORDERED: ACETAMINOPHEN-CODEINE 300/30MG TAB PO PRN (09:00)
[2020-07-06] MEDS: ALLOPURINOL 100 MG TABLET PO SCH (09:26)
[2020-07-06] MEDS: MIDODRINE HCL 5 MG TABLET PO SCH (09:26)
[2020-07-06] MEDS: Vitamin B Complex/Vit C/Folic Acid PO SCH (09:26)
[2020-07-06 11:00] VITALS: BP_SYST 103; BP_SYST 163; BP_DIAS 73; BP_DIAS 96
[2020-07-06] MEDS ORDERED: METO5 PO (13:31)
[2020-07-06] MEDS ORDERED: ONDA4TAB4 PO (13:31)
[2020-07-06] MEDS ORDERED: MIDO10TA PO (13:31)
[2020-07-06 16:00] VITALS: BP 113/53
== END 2020-07-06 19:00 | disposition home or self-care (01) | DRG 871 ==
LOC: EDH 20:17 → EDHIP 20:18 → 3DH 06-25 00:40
PROVIDERS: ADMIT Internal Medicine; ATTEND Internal Medicine
PROC: 0W9G3ZZ Drainage of Peritoneal Cavity, Percutaneous Approach (ICD-10-PCS; principal; 2020-07-05)
DX: A41.89 Other specified sepsis (principal); J18.9 Pneumonia, unspecified organism; E43 Unspecified severe protein-calorie malnutrition; R18.8 Other ascites; E44.0 Moderate protein-calorie malnutrition; C23 Malignant neoplasm of gallbladder; C78.6 Secondary malignant neoplasm of retroperitoneum and peritoneum; N39.0 Urinary tract infection, site not specified; E87.1 Hypo-osmolality and hyponatremia; Z68.42 Body mass index [BMI] 45.0-49.9, adult; J91.0 Malignant pleural effusion; N28.9 Disorder of kidney and ureter, unspecified; E66.01 Morbid (severe) obesity due to excess calories; N18.30 Chronic kidney disease, stage 3 unspecified; Z20.828 Contact with and (suspected) exposure to other viral communicable diseases; D64.9 Anemia, unspecified; E03.9 Hypothyroidism, unspecified; E11.22 Type 2 diabetes mellitus with diabetic chronic kidney disease; E87.6 Hypokalemia; F41.1 Generalized anxiety disorder; F43.23 Adjustment disorder with mixed anxiety and depressed mood; F60.7 Dependent personality disorder; G89.3 Neoplasm related pain (acute) (chronic); I12.9 Hypertensive chronic kidney disease with stage 1 through stage 4 chronic kidney disease, or unspecified chronic kidney disease; K74.60 Unspecified cirrhosis of liver; Z79.899 Other long term (current) drug therapy; N83.299 Other ovarian cyst, unspecified side; Z85.05 Personal history of malignant neoplasm of liver; Z85.09 Personal history of malignant neoplasm of other digestive organs; Z85.51 Personal history of malignant neoplasm of bladder; Z90.49 Acquired absence of other specified parts of digestive tract; Z92.21 Personal history of antineoplastic chemotherapy; R53.81 Other malaise; D47.3 Essential (hemorrhagic) thrombocythemia
CPT/HCPCS: 36415; 49083; 71045; 74176; 76705; 76770; 80048; 80053; 81001; 82140; 82270; 82550; 82570; 82948; 83036; 83605; 83735; 83874; 83880; 84100; 84145; 84300; 84484; 84550; 85025; 85027; 85610; 85730; 87040; 87071; 87077; 87088; 87186; 87205; 87426; 89051; 93005; 97039; C1729; G0378; J0456; J0696; J1170; J1815; J2270; J2405; J3490; J7030; P9046; U0003

== ENCOUNTER 2020-08-16 07:20 | Emergency (ER) | payer SELFPAY ==
[~2020-08-16 07:20] MED LIST changes: -CEPH500C2 PO; -ENAL20TA18 PO; -FISH1CAP27 PO; -METF-444 PO; +METO5 PO; +MIDO10TA PO; +ONDA4TAB4 PO
[2020-08-16 07:50] LABS: BASOPHILS % (AUTO) 0.3 % (0.0-5.0); EOSINOPHILS % (AUTO) 1.2 % (0.0-8.0); HEMATOCRIT 31.5 % (36-48); LYMPHOCYTES % (AUTO) 6.1 % (21.0-51.0); MEAN CORPUSCULAR HEMOGLOBIN 29.7 pg (27.0-33.0); MEAN CORPUSCULAR HGB CONC 33.7 g/dL (32.0-36.0); MEAN CORPUSCULAR VOLUME 88.2 fL (79-99); NEUTROPHILS % (AUTO) 85.4 % (40.0-77.0); PLATELET COUNT (AUTO) 561 K/uL (130-400); RED BLOOD CELL COUNT(AUTO) 3.57 MIL/uL (4.00-5.50); RED CELL DISTRIBUTION WIDTH 15.6 % (11.0-15.5); WHITE BLOOD COUNT (AUTO) 14.3 K/uL (4.8-10.8)
[2020-08-16] MEDS ORDERED: MORPHINE 4 MG SYG ONE (08:05)
[2020-08-16] MEDS ORDERED: ONDANSETRON 4MG INJ ONE (08:05)
[2020-08-16 08:07] LABS: ALBUMIN 1.8 g/dL (3.5-5.0); BILIRUBIN,TOTAL 0.5 mg/dL (0.2-1.0)
[2020-08-16 08:12] LABS: POTASSIUM 6.4 mmol/L (3.5-5.1)
[2020-08-16 08:13] LABS: CREATININE 10.4 mg/dL (0.5-1.5)
[2020-08-16 08:35] LABS: PROTHROMBIN TIME 10.9 SEC (9.6-11.6)
[2020-08-16 08:36] LABS: PARTIAL THROMBOPLASTIN TIME 29.7 SEC (26.3-35.5)
[2020-08-16] MEDS ORDERED: DEXTROSE 50%-WATER 50 ML DISP.SYRIN IV ONE (08:41)
[2020-08-16] MEDS ORDERED: SODIUM BICARB 50MEQ 50ML VIAL 50 ML ONE (08:41)
[2020-08-16] MEDS ORDERED: INSULIN HUMULIN R 100 UNIT/ML 3ML ONE (08:42)
[2020-08-16] MEDS ORDERED: HYDROMORPHONE 1 MG INJ ONE (08:42)
[2020-08-16] MEDS ORDERED: DiphenhydrAMINE HCL 50 MG/ML VIAL ONE (13:46)
[2020-08-16 13:49] LABS: APPEARANCE BODY FLUID SLIGHTLY CLOUDY (CLEAR); COLOR,BODY FLUID YELLOW (LT YELLOW); SPECIMENTYPE,BODY FLUID ASCITES; TOTAL VOLUME,BODY FLUID 7500 mL
[2020-08-16 13:50] LABS: BODY FLUID RBC 94 /cu. mm.; BODY FLUID WBC 360 /cu. mm.
[2020-08-16 14:06] LABS: BF LYMPHOCYTE 32 %; BF MESOTHELIAL 10 %; BF MONOCYTE 7 %
== END 2020-08-16 14:59 | disposition hospice, home (50) ==
LOC: EDH 07:20
DX: C78.7 Secondary malignant neoplasm of liver and intrahepatic bile duct (principal); E11.9 Type 2 diabetes mellitus without complications; I10 Essential (primary) hypertension; E87.6 Hypokalemia; Z90.49 Acquired absence of other specified parts of digestive tract
CPT/HCPCS: 36415; 49083; 80053; 82140; 82948; 83605 ×2; 83690; 85025; 85610; 85730; 86850; 86900; 86901; 87071; 87205; 89051; 93005; 96365; 96374; 96375; 99285; A4215; J1170; J1200; J1815; J2270; J2405; J3490; J7070; C1729